=== PATIENT | female | born 1980 | race Caucasian/White ===

== ENCOUNTER 2018-12-08 07:08 | Observation (INO) ==
[2018-12-08] MEDS ORDERED: 0.9 % Sodium Chloride 1,000 ML IVC ONE ×2 (07:22→08:14)
[2018-12-08] MEDS ORDERED: methylPREDNISolone 125 MG/2 ML VIAL IVP ONE (07:22)
[2018-12-08] MEDS ORDERED: Isovue-370 500 ML BOTTLE IVP ONE (07:22)
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
[2018-12-08] MEDS ORDERED: Ipratropium/Albuterol Neb 3 ML IH ONE (07:49)
[2018-12-08 07:54] LABS: Basophils % 0.4 %; Hematocrit 42.8 % (35.3-44.9); Hemoglobin 14.3 g/dL (11.5-15.4); Immature Granulocytes % 0.3 % (0-4); Lymphocytes # 1.2 K/mcL (0.6-4.6); Lymphocytes % 11.5 %; Mean Corpuscular HGB Conc 33.4 g/dL (31.6-35.5); Mean Corpuscular Hemoglobin 29.1 pg (28.0-33.3); Mean Corpuscular Volume 87.2 fL (83.0-100.0); Mean Platelet Volume 10.1 fL (9.4-12.4); Monocytes # 0.6 K/mcL (0.0-1.3); Monocytes % 5.8 %; Neutrophils # 8.4 K/mcL (1.6-8.9); Platelet Count 199 K/mcL (140-400); Red Blood Count 4.91 M/mcL (3.82-4.97); Red Cell Distribution Width 13.6 % (11.5-14.5)
[2018-12-08 08:01] LABS: INR 1.1; Prothrombin Time 12.1 Seconds (9.4-12.1)
[2018-12-08 08:04] LABS: Activated Partial Thrombo Time 26.3 Seconds (26.0-36.0)
[2018-12-08 08:12] LABS: BUN/Creatinine Ratio 11 (6-26); Blood Urea Nitrogen 10 mg/dL (6-20); Calcium 8.6 mg/dL (8.6-10.3); Carbon Dioxide 22 mEq/L (23-29); Chloride 102 mEq/L (98-107); Glucose 121 mg/dL (70-105); Magnesium 1.9 mg/dL (1.6-2.6); Osmolality,Calculated 282 (280-300); Potassium 3.3 mEq/L (3.5-5.1); Sodium 136 mEq/L (136-145); eGFR For Non-African Americans > 60 (> 60)
[2018-12-08 08:13] LABS: Troponin I < 0.03 ng/mL (< 0.04)
[2018-12-08 08:29] LABS: ABG Base Excess -4 mEq/L (-2 to 3); ABG HCO3 19 mEq/L (21-27); ABG Oxygen Saturation 95 % (95-98); ABG PCO2 26 mmHg (35-45); ABG PH 7.46 pH Units (7.32-7.45); ABG PO2 72 mmHg (85-104); ABG TCO2 20 mEq/L (20-26)
[2018-12-08] MEDS ORDERED: cefTRIAXone 2,000 MG in Water for inj. (sterile) 20 ML 20 ML IVP SCH (09:00)
[2018-12-08] MEDS ORDERED: Azithromycin 500 MG in D5% in Water 250 ML IVPB SCH (09:00)
[2018-12-08] MEDS ORDERED: Naloxone 0.4 MG/ML INJ IVP PRN ×2 (09:11→10:50)
[2018-12-08] MEDS ORDERED: Ibuprofen 600 MG TABLET PO PRN (10:50)
[2018-12-08] MEDS ORDERED: clonazePAM 0.5 MG TABLET PO PRN (10:50)
[2018-12-08] MEDS ORDERED: Benzonatate 100 MG CAPSULE PO PRN (10:50)
[2018-12-08] MEDS ORDERED: *HR* OxyCODONE/APAP 5/325 TABLET PO PRN (10:50)
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
[2018-12-08] MEDS: 0.45 % Sodium Chloride w/KCl 20 MEQ/1,000 ML MLS IVC SCH (17:25)
[2018-12-09 01:18] LABS: Adenovirus Not Detected (Not Detect); Bordetella Pertussis Not Detected (Not Detect); Chlamydophila pneumoniae Not Detected (Not Detect); Coronavirus 229E Not Detected (Not Detect); Coronavirus HKU1 Not Detected (Not Detect); Coronavirus NL63 Not Detected (Not Detect); Coronavirus OC43 Not Detected (Not Detect); Human Metapneumovirus Not Detected (Not Detect); Human Rhinovirus/Enterovirus Not Detected (Not Detect); Influenza A Subtype 2009 H1 Not Detected (Not Detect); Influenza A Untypeable Not Detected (Not Detect); Influenza B Not Detected (Not Detect); Mycoplasma pneumoniae Not Detected (Not Detect); Parainfluenza Virus 1 Not Detected (Not Detect); Parainfluenza Virus 2 Not Detected (Not Detect); Parainfluenza Virus 3 Not Detected (Not Detect); Parainfluenza Virus 4 Not Detected (Not Detect); Respiratory Syncytial Virus Not Detected (Not Detect)
[2018-12-09] MEDS: 0.45 % Sodium Chloride w/KCl 20 MEQ/1,000 ML MLS IVC SCH (05:53)
[2018-12-09 06:51] LABS: Basophils % 0.3 %; Hematocrit 38.6 % (35.3-44.9); Hemoglobin 12.9 g/dL (11.5-15.4); Immature Granulocytes % 0.6 % (0-4); Lymphocytes # 2.2 K/mcL (0.6-4.6); Lymphocytes % 31.3 %; Mean Corpuscular HGB Conc 33.4 g/dL (31.6-35.5); Mean Corpuscular Hemoglobin 29.1 pg (28.0-33.3); Mean Corpuscular Volume 87.1 fL (83.0-100.0); Mean Platelet Volume 10.5 fL (9.4-12.4); Monocytes % 14.8 %; Neutrophils # 3.7 K/mcL (1.6-8.9); Platelet Count 194 K/mcL (140-400); Red Blood Count 4.43 M/mcL (3.82-4.97); Red Cell Distribution Width 13.7 % (11.5-14.5)
[2018-12-09 07:16] LABS: BUN/Creatinine Ratio 11 (6-26); Blood Urea Nitrogen 7 mg/dL (6-20); Calcium 8.3 mg/dL (8.6-10.3); Carbon Dioxide 21 mEq/L (23-29); Chloride 107 mEq/L (98-107); Glucose 136 mg/dL (70-105); Osmolality,Calculated 286 (280-300); Potassium 3.6 mEq/L (3.5-5.1); Sodium 138 mEq/L (136-145); eGFR For Non-African Americans > 60 (> 60)
[2018-12-09 07:29] VITALS: BP 118/68
[2018-12-09] MEDS ORDERED: cefTRIAXone 2,000 MG in Water for inj. (sterile) 20 ML 20 ML IVP SCH (09:00)
[2018-12-09] MEDS ORDERED: Azithromycin 500 MG in D5% in Water 250 ML IVPB SCH (09:00)
[2018-12-09] MEDS ORDERED: predniSONE 20 MG TABLET PO SCH (09:00)
--- NOTE | 2018-12-09 09:21 | Discharge Summary ---
Orders not resulted at time of discharge: Pending orders 12/08/18 07:22 ECG 12 lead ECG [ECG] Stat 12/08/18 07:47 Culture,Blood [BC] Stat 12/08/18 21:53 Culture,Sputum with Gram Stain [RM] Stat 12/09/18 06:10 Vitamin D 25 Hydroxy AM 0400 Date of Encounter: 12/09/18 Time of Encounter: 09:10 - Discharge Diagnosis (1) Community acquired pneumonia Priority: Primary Status: Acute Qualifiers: Laterality: unspecified laterality Qualified Code(s): J18.9 - Pneumonia, unspecified organism (2) Hypokalemia Priority: Secondary Status: Resolved (3) Low vitamin D level Priority: Secondary Status: Acute Hospital course: Ms. Walsh is a 38 year old female who came to emergency room stating she had cough with occasional green sputum, dyspnea, and diarrhea onset 3-4 days earlier. She reports nausea but no significant vomiting. She denies melena or hematochezia. She was evaluated at a local urgent care on December 06 and was given steroids, albuterol, and antitussive. She did not feel improved so came to emergency room today. Chest CTA showed bilateral pneumonia. She was admitted to [facility] floor for ongoing care needs. Initial orders were written by the emergency room physician. I saw her on December 08 and performed a history and physical. She was started on IV Rocephin and Zithromax IV with lactobacillus. She spiked a fever to 103.3 the afternoon of admission after I saw her but remained afebrile the remainder of hospitalization. When I saw her on December 09 she stated she felt significantly improved and stable for discharge home. Respiratory infection panel returned without specific organism detected. WBC decreased to 6.9 with resolution of left shift on follow-up labs December 09. 25 [place] vitamin D level is pending at time of discharge. Her PCP can follow up on this. She will have 6 minute walk prior to discharge home to see if supplemental oxygen is needed. I encouraged her to become a nonsmoker. She will continue with antibiotic and probiotic with prednisone for 5 additional days at discharge She will follow with her PCP Lisa Chavez CNP within 1 week. - Time Spent with Patient Total time spent providing and/or coordinating discharge services: - Discharge Medications Prescriptions: New Cefuroxime PO [Ceftin] 500 mg PO Q12HR #10 tablet Lactobacillus [Culturelle] 1 each PO BID #10 cap.sprink Continue clonazePAM [Klonopin] 0.5 mg PO BID PRN PRN Reason: Anxiety Docusate [Colace] 100 mg PO BID PRN #60 capsule PRN Reason: Constipation Estradiol [Estrace] 1 mg PO DAILY #90 tablet Ibuprofen [Motrin] 600 mg PO Q6HR PRN #40 tablet PRN Reason: Pain OxyCODONE/APAP 5/325 [Percocet 5/325 MG] 1 each PO Q4HR PRN #40 tablet PRN Reason: Severe Pain (7-10) Pseudoephedrine [Sudafed] 60 mg PO Q6HR PRN #30 tablet PRN Reason: Congestion Ibuprofen [Motrin] 400 mg PO Q8HR PRN #30 tablet PRN Reason: Pain Albuterol Sulfate [Ventolin Hfa] 1 - 2 spray IH Q4H PRN #1 hfa.aer.ad PRN Reason: Congestion Benzonatate [Tessalon] 200 mg PO TID PRN #45 capsule PRN Reason: Cough Azithromycin [Azithromycin 6-Tab Pack] 250 mg PO PER PKG DI #6 tab Changed PredniSONE [Deltasone] 20 mg PO BID 5 Days #10 tablet Home Medications: clonazePAM [Klonopin] 0.5 mg PO BID PRN 10/10/16 [History] Docusate [Colace] 100 mg PO BID PRN #60 capsule 10/11/16 [Rx] Estradiol [Estrace] 1 mg PO DAILY #90 tablet 10/11/16 [Rx] Ibuprofen [Motrin] 600 mg PO Q6HR PRN #40 tablet 10/11/16 [Rx] OxyCODONE/APAP 5/325 [Percocet 5/325 MG] 1 each PO Q4HR PRN #40 tablet 10/11/16 [Rx] Albuterol Sulfate [Ventolin Hfa] 1 - 2 spray IH Q4H PRN #1 hfa.aer.ad 06/19/18 [Rx] Benzonatate [Tessalon] 200 mg PO TID PRN #45 capsule 06/19/18 [Rx] Ibuprofen [Motrin] 400 mg PO Q8HR PRN #30 tablet 06/19/18 [Rx] Pseudoephedrine [Sudafed] 60 mg PO Q6HR PRN #30 tablet 06/19/18 [Rx] Azithromycin [Azithromycin 6-Tab Pack] 250 mg PO PER PKG DI #6 tab 12/09/18 [Rx] Cefuroxime PO [Ceftin] 500 mg PO Q12HR #10 tablet 12/09/18 [Rx] Lactobacillus [Culturelle] 1 each PO BID #10 cap.sprink 12/09/18 [Rx] PredniSONE [Deltasone] 20 mg PO BID 5 Days #10 tablet 12/09/18 [Rx] Allergies/Adverse Reactions: Allergy/AdvReac Type Severity Reaction Status Date / Time acetaminophen [From Vicodin] AdvReac Headache Verified 06/19/18 20:31 ciprofloxacin [From Cipro] AdvReac Nausea Verified 06/19/18 20:31 gabapentin [From Neurontin] AdvReac Depression Verified 06/19/18 20:31 hydrocodone [From Vicodin] AdvReac Headache Verified 06/19/18 20:31 Date of admission: 12/08/18 09:20 Primary care physician: Lisa Chavez - Constitutional Vitals: Temp Pulse Resp BP Pulse Ox 97.9 F 80 17 118/68 95 12/09/18 07:28 12/09/18 07:28 12/09/18 07:28 12/09/18 07:28 12/09/18 07:28 - Patient Status Disposition: Home, Self-Care Condition: Serious - Discharge Instructions Follow Up With: Lisa Chavez, [employer] [Primary Care Provider] - 1 week - Diet and Activity Activity: resume usual activities as tolerated Diet: advance to your usual diet
--- NOTE | 2018-12-13 18:10 | Electrocardiograph Report ---
[place] [id number] Test Date: 2018-12-08 Pat Name: Yulia Walsh Department: EDP-12 Room: [facility] Gender: F [employer]: : 1980 Requested By: Faviola De Leon Order Number: [id number] Reading MD: Carline Noonan Measurements Intervals [place] Rate: 106 P: 72 ME: 155 QRS: 62 QRSD: 85 T: 3 QT: 300 QTc: 399 Interpretive Statements Sinus tachycardia Nonspecific ST abnormalities Electronically Signed On 12-13-2018 18:08:56 EDT by Carline Noonan
== END 2018-12-09 10:51 | disposition home or self-care (01) ==
LOC: INPPIK 07:08 → EMEROOPIK 07:08 → INPPIK 10:59
PROVIDERS: ADMIT Internal Medicine; ATTEND Internal Medicine